=== PATIENT | male | born 1980 | race Caucasian/White ===

== ENCOUNTER 2018-07-04 08:30 | Day surgery (SDC) | payer OTHER ==
[2018-07-01 17:16] VITALS: BMI 32.2
[~2018-07-04] VITALS: Ht 157.5 cm; Wt 82.8 kg
[2018-07-04] VITALS (14 sets, daily range): BP systolic 98–127; BP diastolic 55–78; PULSE 71–82; RESP 13–20; Ht 157.5 cm; Wt 82.8 kg
[2018-07-04] MEDS ORDERED: BUPIVACAINE 0.25% (MPF) 30 ML INJ ONE (09:13)
--- NOTE | 2018-07-04 09:29 | PREAC ---
Date/Time of Note Date/Time of Note DATE: 07/04/18 TIME: 09:28 Anesthesia Eval and Record Evaluation Time Pre-Procedure Interview DATE: 07/04/18 TIME: 09:28 Age 38 Sex male NPO: 8 hrs Preoperative diagnosis LEFT INGUINAL HERNIA Planned procedure LEFT INGUINAL HERNIA REPAIR Past Medical History Past Medical History: Includes Cardio: Dyslipidemia Pulm: Smoking Hx (4 TOBACCOS PER DAY FOR 17 YEARS NOW, LAST SMOKED YESTERDAY) Surgery & Anesthesia Issues No known issue Meds Anticoagulation: No Beta Essence within 24 hr: No Reason Beta Essence not given: Pt. not on B-Essence No Active Prescriptions or Reported Meds Current Medications Sodium Chloride 1,000 ml @ 75 mls/hr [id number] IV Last administered on 07/04/18at 08:57; Admin Dose 75 MLS/HR; Start 07/04/18 at 10:00; Stop 07/04/18 at 22:00 Cefazolin Sodium/ Dextrose 50 ml @ 100 mls/hr PRE-OP ONCE IVPB ; Start 07/04/18 at 10:00; Stop 07/04/18 at 10:29 Meds reviewed: Yes Allergies Coded Allergies: No Known Drug Allergy (Verified Allergy, Unknown, 07/04/18) Allergies Reviewed: Yes Labs/Studies Labs Reviewed: Reviewed by anesthesiologist test: N/A Pre-procedure Exam Last vitals Vital Signs Date Temp Pulse Resp B/P (MAP) Pulse Ox O2 O2 Flow FiO2 Time Delivery Rate 07/04/18 96.7 71 20 127/78 100 Room Air 09:08 (94) Airway: Adequate mouth opening, Adequate thyromental dist Mallampati: Mallampati II Teeth: Normal Lung: Normal Heart: Normal ASA Physical Status ASA physical status: 2 Emergency: None Planned Anesthetic General/MAC: LMA Planned Pain Management Parenteral pain med, Local by surgeon Pre-operative Attestations Prior to commencing anesthesia and surgery, the patient was re-evaluated, there was verification of: *The patient's identity *The results of appropriate recent lab work and preoperative vital signs *The above evaluation not changing prior to induction *Anesthetic plan, risk benefits, alternative and complications discussed with patient/family; questions answered; patient/family understands, accepts and wishes to proceed. BRIDGET ROMERO July 04, 2018 09:29
[2018-07-04] MEDS ORDERED: SEVOFLURANE 15 MIN ONE (09:30)
[2018-07-04] MEDS ORDERED: POLYMYXIN/BACITRACIN 1L IRRIG ONE (09:31)
[2018-07-04] MEDS ORDERED: MIDAZOLAM 1 MG/ML 2 ML INJ ONE (09:39)
[2018-07-04] MEDS ORDERED: FENTAnyl 50 MCG/ML VIAL ONE ×2 (09:39→09:51)
[2018-07-04] MEDS ORDERED: PROPOFOL 20 ML ONE (09:50)
[2018-07-04] MEDS ORDERED: DEXAMETHASONE 4 MG/ML 5 ML INJ ONE (09:50)
[2018-07-04] MEDS ORDERED: LIDOCAINE 100 MG SYRINGE ONE (09:50)
[2018-07-04] MEDS ORDERED: ONDANSETRON 4 MG INJ ONE (09:50)
[2018-07-04] MEDS ORDERED: CEFAZOLIN 1 GM INJ ONE (09:50)
[2018-07-04] MEDS ORDERED: CEFAZOLIN 2 GM/50 ML (PMX) 50 ML IVPB ONE (10:00)
[2018-07-04] MEDS ORDERED: SOD CHLORIDE 0.9% 1,000 ML IV SCH (10:00)
[2018-07-04] MEDS ORDERED: METOCLOPRAMIDE 10 MG INJ ONE (10:19)
--- NOTE | 2018-07-04 10:29 | OPR ---
Date/Time of Note Date/Time of Note DATE: 07/04/18 TIME: 10:26 Operative Report Procedure Date: July 04, 2018 Preoperative Diagnosis left incarcerated inguinal hernia Postoperative Diagnosis same Operation/Procedure Performed open left incarcerated inguinal hernia repair with large ultrapro plug system mesh Surgeon see signature line Buggyman none Anesthesia Type: general Estimated Blood Loss: 10 - 50 ml's Transfusion none Specimen none Grafts/Implants none Complications none Pt Condition Post Procedure: stable Indications This is a 38-year-old male with incarcerated left inguinal hernia. He requires surgical repair. Risks alternatives benefits and personal were discussed the patient. Patient expressed understanding and consents to the operation. Procedure Description Patient is taken to the OR and prepped and draped in usual sterile fashion. Surgical time was performed. IV antibiotics given. Left inguinal oblique incision was made with a 10 blade. Dissection with cautery skin onto the extremity fascia. The external fascia is open with a 15 blade. This incision extended meter fairly lateral sparely with Metzenbaum scissors. Cord structures identified and encircled with a [place] drain. Lysis of adhesions performed the incarcerated large indirect inguinal hernia. After this area was reduced the defect was bolstered with the disc portion of the ultra pro hernia system mesh. The disc secured in place a running 0 Prolene from the pubic tubercle along the shelving single limit. Superiorly the disc is secured to enter oblique with interrupted 3-0 Vicryl. Onlay mesh was secured in a sterile fashion with a running 0 Prolene from the pubic tubercle along the shelving is able limit. Straps are created reapproximate around the cord structures with interrupted 0 Prolene. Onlay mesh was secured to enter oblique with interrupted 0 Vicryl. Externally fascia was closed with running 3-0 Vicryl. Beny's fascia was closed with interrupted 3-0 Vicryl. Skin is closed using inzorb observable skin stapler. Therapeutic contains local anesthesia injected at the incision site. Steri-Strips and dry dressings were applied. Sky DRUMMOND July 04, 2018 10:29
[2018-07-04] MEDS ORDERED: HYDROmorphONE 1 MG/5 ML IV SYRINGE IV PRN ×3 (10:30)
[2018-07-04] MEDS ORDERED: ALBUTEROL 0.083% (NEB) 2.5 MG/3 ML AMP HHN PRN (10:30)
[2018-07-04] MEDS ORDERED: HYDROCODONE/APAP (5/325) TAB PO ONE (10:30)
[2018-07-04] MEDS ORDERED: MEPERIDINE 25 MG INJ IV PRN (10:30)
[2018-07-04] MEDS ORDERED: OXYCODONE/ACETAMINOPHEN (5/325) TAB PO PRN ×2 (10:30)
[2018-07-04] MEDS ORDERED: ONDANSETRON 4 MG INJ IV PRN (10:30)
--- NOTE | 2018-07-04 13:01 | PAC ---
Date/Time of Note Date/Time of Note DATE: 07/04/18 TIME: 13:01 Post-Anesthesia Notes Post-Anesthesia Note Last documented vital signs Vital Signs Date Temp Pulse Resp B/P (MAP) Pulse Ox O2 O2 Flow FiO2 Time Delivery Rate 07/04/18 97.2 73 18 117/55 18 Room Air 11:45 (75) 07/04/18 8.0 10:58 Activity: WNL Respiratory function: WNL Cardiovascular function: WNL Mental status: Baseline Pain reasonably controlled: Yes Hydration appropriate: Yes Nausea/Vomiting absent: Yes BRIDGET ROMERO July 04, 2018 13:01
== END 2018-07-04 13:08 | disposition home or self-care (01) ==
LOC: SDS 08:30
PROVIDERS: ATTEND Surgery
DX: K40.30 Unilateral inguinal hernia, with obstruction, without gangrene, not specified as recurrent (principal); E78.5 Hyperlipidemia, unspecified; Z87.891 Personal history of nicotine dependence
CPT/HCPCS: 49507; C1781; J0690; J1100; J2001; J2175; J2250; J2405; J2765; J3010; Z7512; Z7610